=== PATIENT | female | born 1995 | race Two or more races ===

== ENCOUNTER 2019-09-20 01:22 | Inpatient (IN) | payer OTHER, MEDICAID ==
[2019-09-20] MEDS ORDERED: Penicillin G Potassium 5 MILLUNITS in Sodium Chloride 0.9% 50 ML IV ONE (02:16)
[2019-09-20] MEDS ORDERED: Sodium Chloride 0.9% 10 ML Syringe FLUSH PRN ×2 (02:22→07:11)
[2019-09-20] MEDS ORDERED: Penicillin G Potassium 2.5 MILLUNITS in Sodium Chloride 0.9% 50 ML IV SCH (06:30)
[2019-09-20] MEDS ORDERED: Naloxone 0.4 MG/ML SDV ONE (07:15)
[2019-09-20] MEDS ORDERED: Lidocaine 1% 50 ML MDV ONE (07:15)
[2019-09-20] MEDS ORDERED: Oxytocin 10 Units/1 ML SDV ONE (07:15)
--- NOTE | 2019-09-20 07:23 | PCM.LDHP ---
L&D History of Present Illness - General Date of Service: 09/20/19 (SROM, labor) Admit Problem/Dx: Patient Status Order with Admit Dx/Problem 09/20/19 02:25 Admission Status [Patient Status] [ADT] Routine 09/20/19 07:12 Patient Status [ADT] Routine Admission Diagnosis/Problem Admission Diagnosis/Problem Labor without complication Source of Information: Patient History Limitations: Reports: No Limitations - History of Present Illness Introduction:: 23 year old 39 weeks presented with SROM at 0130 without labor, GBS positive. Clear fluid. Has had adequate care. Came to the hospital promptly. Lab: ABO O pos GBS Pos HIV neg Rubella immune HGB 11.5 PLT 292 Timing/Duration: Reports: minutes: (3) Location, : Reports: Lower back Quality: Reports: Pressure Severity: Severe Improves with: Reports: Other (tub) Worsens with: Reports: Movement - Related Data Allergies/Adverse Reactions: Allergies Allergy/AdvReac Type Severity Reaction Status Date / Time atomoxetine Allergy Nausea Verified 09/20/19 02:30 Home Medications: Home Meds Acyclovir 400 mg PO TID 09/20/19 [History] Albuterol [Proventil Neb Soln] 09/20/19 [History] Albuterol/Ipratropium [DuoNeb 3.0-0.5 MG/3 ML] 3 ml NEB PRN 09/20/19 [History] #92/Iron/FA #8/Ps-Dha [Enbrace Hr Softgel] 1 tab PO DAILY 09/20/19 [ History] Past Medical History Respiratory History: Reports: Asthma [employer] History: Reports: , Spontaneous : 2 Para: 0 LMP (Approximate): (JOI 09/27/19) Psychiatric History: Reports: ADD, Depression - Past Surgical History Respiratory Surgical History: Reports: None Social & Family History - Family History Family Medical History: Noncontributory - Tobacco Use Smoking Status *Q: Never Smoker - Caffeine Use Caffeine Use: Reports: Coffee - Recreational Drug Use Recreational Drug Use: No H&P Review of Systems - Review of Systems: Review Of Systems: See Below General: Reports: No Symptoms HEENT: Reports: No Symptoms Pulmonary: Reports: No Symptoms Cardiovascular: Reports: No Symptoms Gastrointestinal: Reports: No Symptoms Genitourinary: Reports: No Symptoms Musculoskeletal: Reports: No Symptoms Skin: Reports: No Symptoms Psychiatric: Reports: No Symptoms Neurological: Reports: No Symptoms Hematologic/Lymphatic: Reports: No Symptoms Immunologic: Reports: No Symptoms L&D Exam - Exam Exam: See Below - Vital Signs Vital Signs: Last Vital Signs Temp 96.3 F 09/20/19 01:32 Pulse 72 09/20/19 01:32 Resp 18 09/20/19 01:32 BP 136/81 09/20/19 01:32 Pulse Ox 98 09/20/19 01:32 Weight: 217 lb - OB Specific Contraction Duration (sec): 50-60 Contraction Frequency (min): 2-3 Contraction Intensity: Moderate to Strong Movement: Active Heart Tones: Present Heart Tones per Min: 155 Heart Rate (FHR) Variability: Moderate (6-25 bmp) Presentation: Vertex - Eid Score Eid Score Cervix Position: Anterior Eid Score Consistency: Soft Eid Score Effacement: >80% Eid Score Dilation: > 5 cm Eid Score Infant's Station: +1, +2 Eid Score Total: 13 - Exam General: Alert, Oriented HEENT: PERRLA, Mucosa Moist & [place] Neck: Supple Lungs: Clear to Auscultation Cardiovascular: Regular Rate, Regular Rhythm GI/Abdominal Exam: Normal Bowel Sounds Rectal Exam: Normal Rectal Tone Genitourinary: Cervical dilitation Back Exam: Normal Inspection Extremities: Normal Inspection Skin: Warm, Dry Neurological: Cranial Nerves Intact Psychiatric: Alert, Normal Affect, Normal Mood - Patient Data Lab Results Last 24 hrs: Laboratory Results - last 24 hr 09/20/19 09/20/19 09/20/19 Range/Units 01:25 02:05 02:20 WBC (4.5-11.0) K/uL RBC (3.30-5.50) M/uL Hgb (12.0-15.0) g/dL Hct (36.0-48.0) % MCV (80-98) fL MCH (27-31) pg MCHC (32-36) % Plt Count (150-400) K/uL Urine Color Yellow (YELLOW) Urine Appearance Clear (CLEAR) Urine pH 6.0 (5.0-8.0) Ur Specific [place] 1.025 (1.008-1.030) Urine Protein Negative (NEGATIVE) mg/dL Urine Glucose (UA) Negative (NEGATIVE) mg/dL Urine Ketones Negative (NEGATIVE) mg/dL Urine Occult Blood Negative (NEGATIVE) Urine Nitrite Negative (NEGATIVE) Urine Bilirubin Negative (NEGATIVE) Urine Urobilinogen 0.2 (0.2-1.0) EU/dL Ur Leukocyte Esterase Negative (NEGATIVE) Urine RBC 0-5 (0-5) Urine WBC 0-5 (0-5) Ur Epithelial Cells Rare Amorphous Sediment Not seen Urine Bacteria Rare Urine Mucus Few Membrane Rupture Positive H (NEGATIVE) Urine Opiates Screen Negative (NEGATIVE) Ur Oxycodone Screen Negative (NEGATIVE) Urine Methadone Screen Negative (NEGATIVE) Ur Propoxyphene Screen Negative (NEGATIVE) Ur Barbiturates Screen Negative (NEGATIVE) Ur Tricyclics Screen Negative (NEGATIVE) Ur Phencyclidine Scrn Negative (NEGATIVE) Ur Amphetamine Screen Negative (NEGATIVE) U Methamphetamines Scrn Negative (NEGATIVE) Urine MDMA Screen Negative (NEGATIVE) U Benzodiazepines Scrn Negative (NEGATIVE) U Cocaine Metab Screen Negative (NEGATIVE) U Marijuana (THC) Screen Negative (NEGATIVE) 09/20/19 Range/Units 02:30 WBC 10.6 (4.5-11.0) K/uL RBC 3.56 (3.30-5.50) M/uL Hgb 11.5 L (12.0-15.0) g/dL Hct 34.9 L (36.0-48.0) % MCV 98 (80-98) fL MCH 32 H (27-31) pg MCHC 33 (32-36) % Plt Count 292 (150-400) K/uL Urine Color (YELLOW) Urine Appearance (CLEAR) Urine pH (5.0-8.0) Ur Specific [place] (1.008-1.030) Urine Protein (NEGATIVE) mg/dL Urine Glucose (UA) (NEGATIVE) mg/dL Urine Ketones (NEGATIVE) mg/dL Urine Occult Blood (NEGATIVE) Urine Nitrite (NEGATIVE) Urine Bilirubin (NEGATIVE) Urine Urobilinogen (0.2-1.0) EU/dL Ur Leukocyte Esterase (NEGATIVE) Urine RBC (0-5) Urine WBC (0-5) Ur Epithelial Cells Amorphous Sediment Urine Bacteria Urine Mucus Membrane Rupture (NEGATIVE) Urine Opiates Screen (NEGATIVE) Ur Oxycodone Screen (NEGATIVE) Urine Methadone Screen (NEGATIVE) Ur Propoxyphene Screen (NEGATIVE) Ur Barbiturates Screen (NEGATIVE) Ur Tricyclics Screen (NEGATIVE) Ur Phencyclidine Scrn (NEGATIVE) Ur Amphetamine Screen (NEGATIVE) U Methamphetamines Scrn (NEGATIVE) Urine MDMA Screen (NEGATIVE) U Benzodiazepines Scrn (NEGATIVE) U Cocaine Metab Screen (NEGATIVE) U Marijuana (THC) Screen (NEGATIVE) Result Diagrams: 09/20/19 02:30 - Problem List (1) SNOMED Code(s): 74306938 ICD Code: Z34.90 - ENCNTR FOR SUPRVSN OF NORMAL , UNSP, UNSP TRIMESTER Status: Acute Current Visit: Yes Qualifiers: Weeks of gestation: 39 weeks Qualified Code(s): Z3A.39 - 39 weeks gestation of (2) Spontaneous rupture of amniotic membranes SNOMED Code(s): 518378662 ICD Code: PRS6207 - Status: Acute Current Visit: Yes (3) Active labor at term SNOMED Code(s): 61826769 ICD Code: MFG3212 - Status: Acute Current Visit: Yes Problem List Initiated/Reviewed/Updated: Yes Orders Last 24hrs: Active Orders 24 hr Category Date Time Status Admission Status [Patient Status] [ADT] Routine ADT 09/20/19 02:25 Active Patient Status [ADT] Routine ADT 09/20/19 07:12 Active Antiembolic Devices [RC] .Routine Care 09/20/19 07:14 Active Communication Order [RC] ASDIRECTED Care 09/20/19 07:12 Active Communication Order [RC] Per Unit Routine Care 09/20/19 07:15 Active Communication Order [RC] Per Unit Routine Care 09/20/19 07:15 Active Communication Order [RC] Per Unit Routine Care 09/20/19 07:15 Active Heart Tones [RC] PER UNIT ROUTINE Care 09/20/19 07:12 Active Non Stress Test [RC] Click to Edit Care 09/20/19 07:12 Active Nitrous Oxide Delivery [RC] ASDIRECTED Care 09/20/19 07:15 Active Notify Provider Vital Signs [RC] PRN Care 09/20/19 07:11 Active Notify Provider [RC] PRN Care 09/20/19 07:12 Active OB Check [OM.PC] Click to Edit Care 09/20/19 01:25 Ordered Oxygen Therapy [RC] ASDIRECTED Care 09/20/19 07:15 Active Peripheral IV Care [RC] . DIRECTED Care 09/20/19 02:22 Active Pulse Oximetry [RC] ASDIRECTED Care 09/20/19 07:15 Active VTE/DVT Education [RC] Click to Edit Care 09/20/19 07:14 Active Verify Patient Consent Obtain [RC] ASDIRECTED Care 09/20/19 07:15 Active Vital Signs [RC] PER UNIT ROUTINE Care 09/20/19 07:12 Active Vital Signs [RC] PER UNIT ROUTINE Care 09/20/19 07:15 Active Penicillin G Potassium [Pfizerpen] 2.5 millunits Med 09/20/19 07:30 Active Sodium Chloride 0.9% [Normal Saline] 50 ml IV Q4H Sodium Chloride 0.9% [Saline Flush] Med 09/20/19 02:22 Active 10 ml FLUSH ASDIRECTED PRN Sodium Chloride 0.9% [Saline Flush] Med 09/20/19 07:11 Ordered 10 ml FLUSH ASDIRECTED PRN DVT/VTE Prophylaxis Reflex [OM.PC] Routine Oth 09/20/19 07:11 Ordered Peripheral IV Insertion Adult [OM.PC] Routine Oth 09/20/19 02:22 Ordered Saline Lock Insert [OM.PC] Routine Oth 09/20/19 07:12 Ordered Resuscitation Status Routine Resus Stat 09/20/19 07:11 Ordered Medication Orders Penicillin G Potassium 2.5 (millunits/ Sodium Chloride) 50 mls @ 100 mls/hr IV Q4H ROHINI Sodium Chloride (Saline Flush) 10 ml FLUSH ASDIRECTED PRN PRN Reason: Keep Vein Open Sodium Chloride (Saline Flush) 10 ml FLUSH ASDIRECTED PRN PRN Reason: Keep Vein Open Assessment/Plan Comment:: 09/20/19 active labor at term, SROM at home plan vaginal delivery this AM.
[2019-09-20] MEDS: Penicillin G Potassium 2.5 MILLUNITS in Sodium Chloride 0.9% 50 ML IV SCH ×2 (07:31→15:02)
--- NOTE | 2019-09-20 09:05 | PCM.DEL ---
L & D Note - General Info Date of Service: 09/20/19 (childbirth) Mother's Due Date: 08/27/19 - Delivery Note Labor: Spontaneous Delivery Outcome: Livebirth Infant Delivery Method: Spontaneous Vaginal Delivery-Single Delivery Mode: Spontaneous Presentation: Left Occiput Anterior (BRIONNA) Nuchal Cord: None Anesthesia Type: Nitrous Oxide Episiotomy Type: None Laceration: 1st Degree, Labial Placenta: Intact, Spontaneous Estimated Blood Loss: 100 Resuscitation Needed: No : Bulb Syringe, Stimulated, Warmed, [place] Used Provider: Mary Santoyo Score 1 min: 8 (one tone, one color) Score 5 min: 9 (one color) Second Stage Interventions: Reports: Encouragement Given, Pushing Effectively, Pushing, McRobert's Position Delivery Comments (Free Text/Narrative):: This 24 year old G2 now P1 who is 39 weeks gestation delivered via a viable female over an intact perineum at 0830 in BRIONNA position. SHe was placed on mother's abdomen where she was dried and stimulated. Apgars of 8-9. No nuchal cord and three vessel cord. She cried spontaneously. The placenta was expressed spontaneously intact. Active management of the third stage was used. ad delayed cord clamping as well. One small right labial tear was found and not bleeding so not repaired. No other lacerations were observed. EBL: 100cc Mother and baby to post in stable condition. First stage 9688-6116 Second stage 3704-1130, first push at 0755 third stage 7936-3952 - General Info Date of Service: 09/20/19 Admission Dx/Problem (Free Text): Patient Status Order with Admit Dx/Problem 09/20/19 02:25 Admission Status [Patient Status] [ADT] Routine 09/20/19 07:12 Patient Status [ADT] Routine Admission Diagnosis/Problem Admission Diagnosis/Problem Labor without complication Functional Status: Reports: Pain Controlled - Review of Systems General: Reports: No Symptoms HEENT: Reports: No Symptoms Pulmonary: Reports: No Symptoms Cardiovascular: Reports: No Symptoms Gastrointestinal: Reports: No Symptoms Genitourinary: Reports: No Symptoms Musculoskeletal: Reports: No Symptoms Skin: Reports: No Symptoms Neurological: Reports: No Symptoms Psychiatric: Reports: No Symptoms - Patient Data Vitals - Most Recent: Last Vital Signs Temp 98.1 F 09/20/19 07:38 Pulse 84 09/20/19 07:38 Resp 18 09/20/19 07:38 BP 152/82 H 09/20/19 07:38 Pulse Ox 99 09/20/19 07:38 Weight - Most Recent: 217 lb Lab Results Last 24 Hours: Laboratory Results - last 24 hr 09/20/19 09/20/19 09/20/19 Range/Units 01:25 02:05 02:20 WBC (4.5-11.0) K/uL RBC (3.30-5.50) M/uL Hgb (12.0-15.0) g/dL Hct (36.0-48.0) % MCV (80-98) fL MCH (27-31) pg MCHC (32-36) % Plt Count (150-400) K/uL Urine Color Yellow (YELLOW) Urine Appearance Clear (CLEAR) Urine pH 6.0 (5.0-8.0) Ur Specific [place] 1.025 (1.008-1.030) Urine Protein Negative (NEGATIVE) mg/dL Urine Glucose (UA) Negative (NEGATIVE) mg/dL Urine Ketones Negative (NEGATIVE) mg/dL Urine Occult Blood Negative (NEGATIVE) Urine Nitrite Negative (NEGATIVE) Urine Bilirubin Negative (NEGATIVE) Urine Urobilinogen 0.2 (0.2-1.0) EU/dL Ur Leukocyte Esterase Negative (NEGATIVE) Urine RBC 0-5 (0-5) Urine WBC 0-5 (0-5) Ur Epithelial Cells Rare Amorphous Sediment Not seen Urine Bacteria Rare Urine Mucus Few Membrane Rupture Positive H (NEGATIVE) Urine Opiates Screen Negative (NEGATIVE) Ur Oxycodone Screen Negative (NEGATIVE) Urine Methadone Screen Negative (NEGATIVE) Ur Propoxyphene Screen Negative (NEGATIVE) Ur Barbiturates Screen Negative (NEGATIVE) Ur Tricyclics Screen Negative (NEGATIVE) Ur Phencyclidine Scrn Negative (NEGATIVE) Ur Amphetamine Screen Negative (NEGATIVE) U Methamphetamines Scrn Negative (NEGATIVE) Urine MDMA Screen Negative (NEGATIVE) U Benzodiazepines Scrn Negative (NEGATIVE) U Cocaine Metab Screen Negative (NEGATIVE) U Marijuana (THC) Screen Negative (NEGATIVE) 09/20/19 Range/Units 02:30 WBC 10.6 (4.5-11.0) K/uL RBC 3.56 (3.30-5.50) M/uL Hgb 11.5 L (12.0-15.0) g/dL Hct 34.9 L (36.0-48.0) % MCV 98 (80-98) fL MCH 32 H (27-31) pg MCHC 33 (32-36) % Plt Count 292 (150-400) K/uL Urine Color (YELLOW) Urine Appearance (CLEAR) Urine pH (5.0-8.0) Ur Specific [place] (1.008-1.030) Urine Protein (NEGATIVE) mg/dL Urine Glucose (UA) (NEGATIVE) mg/dL Urine Ketones (NEGATIVE) mg/dL Urine Occult Blood (NEGATIVE) Urine Nitrite (NEGATIVE) Urine Bilirubin (NEGATIVE) Urine Urobilinogen (0.2-1.0) EU/dL Ur Leukocyte Esterase (NEGATIVE) Urine RBC (0-5) Urine WBC (0-5) Ur Epithelial Cells Amorphous Sediment Urine Bacteria Urine Mucus Membrane Rupture (NEGATIVE) Urine Opiates Screen (NEGATIVE) Ur Oxycodone Screen (NEGATIVE) Urine Methadone Screen (NEGATIVE) Ur Propoxyphene Screen (NEGATIVE) Ur Barbiturates Screen (NEGATIVE) Ur Tricyclics Screen (NEGATIVE) Ur Phencyclidine Scrn (NEGATIVE) Ur Amphetamine Screen (NEGATIVE) U Methamphetamines Scrn (NEGATIVE) Urine MDMA Screen (NEGATIVE) U Benzodiazepines Scrn (NEGATIVE) U Cocaine Metab Screen (NEGATIVE) U Marijuana (THC) Screen (NEGATIVE) Med Orders - Current: Current Medications Penicillin G Potassium 2.5 (millunits/ Sodium Chloride) 50 mls @ 100 mls/hr IV Q4H [facility] Last Admin: 09/20/19 07:31 Dose: 100 mls/hr Sodium Chloride (Saline Flush) 10 ml FLUSH ASDIRECTED PRN PRN Reason: Keep Vein Open Discontinued Medications Penicillin G Potassium 5 (millunits/ Sodium Chloride) 50 mls @ 100 mls/hr IV ONETIME ONE Stop: 09/20/19 02:45 Last Admin: 09/20/19 03:21 Dose: 100 mls/hr Penicillin G Potassium 2.5 (millunits/ Sodium Chloride) 50 mls @ 100 mls/hr IV Q4H [facility] Oxytocin/Sodium Chloride (Pitocin In Ns 20 Units/1,000 Ml) Confirm Administered Dose 20 unit in 1,000 mls @ as directed .ROUTE .[facility] ONE Stop: 09/20/19 07:16 Lidocaine HCl (Xylocaine 1%) Confirm Administered Dose 100 ml .ROUTE .[facility] ONE Stop: 09/20/19 07:16 Naloxone HCl (Narcan) Confirm Administered Dose 0.4 mg .ROUTE .[facility] ONE Stop: 09/20/19 07:16 Oxytocin (Pitocin) Confirm Administered Dose 10 unit .ROUTE .[facility] ONE Stop: 09/20/19 07:16 - Exam General: Alert, Oriented HEENT: Pupils Reactive, Mucous Membr. Moist/[place] Neck: Supple Lungs: Normal Respiratory Effort Cardiovascular: Regular Rate GI/Abdominal Exam: Normal Bowel Sounds (Female) Exam: Cervical Dilatation, Enlarged Uterus, Vaginal Bleeding Back Exam: Full Range of Motion Extremities: Non-Tender, No Pedal Edema, Normal Capillary Refill Skin: Warm, Dry, Intact Neurological: No New Focal Deficit Psy/Mental Status: Alert, Normal Affect, Normal Mood - Problem List & Annotations (1) SNOMED Code(s): 59234653 Code(s): Z34.90 - ENCNTR FOR SUPRVSN OF NORMAL , UNSP, UNSP TRIMESTER Status: Acute Current Visit: Yes Qualifiers: Weeks of gestation: 39 weeks Qualified Code(s): Z3A.39 - 39 weeks gestation of (2) Spontaneous rupture of amniotic membranes SNOMED Code(s): 549524410 Code(s): DXJ9575 - Status: Acute Current Visit: Yes (3) Active labor at term SNOMED Code(s): 97947789 Code(s): LGG4070 - Status: Acute Current Visit: Yes (4) Vaginal delivery SNOMED Code(s): 854208860 Code(s): O80 - ENCOUNTER FOR FULL-TERM UNCOMPLICATED DELIVERY Status: Acute Current Visit: Yes - Problem List Review Problem List Initiated/Reviewed/Updated: Yes - My Orders Last 24 Hours: My Active Orders 09/20/19 01:25 OB Check [OM.PC] Click To Edit 09/20/19 02:22 Peripheral IV Care [RC] . DIRECTED Sodium Chloride 0.9% [Saline Flush] 10 ml FLUSH ASDIRECTED PRN Peripheral IV Insertion Adult [OM.PC] Routine 09/20/19 02:25 Admission Status [Patient Status] [ADT] Routine 09/20/19 07:11 Notify Provider Vital Signs [RC] PRN DVT/VTE Prophylaxis Reflex [OM.PC] Routine Resuscitation Status Routine 09/20/19 07:12 Patient Status [ADT] Routine Communication Order [RC] ASDIRECTED Heart Tones [RC] PER UNIT ROUTINE Non Stress Test [RC] Click to Edit Notify Provider [RC] PRN Vital Signs [RC] PER UNIT ROUTINE Saline Lock Insert [OM.PC] Routine 09/20/19 07:14 Antiembolic Devices [RC] .Routine VTE/DVT Education [RC] Click to Edit 09/20/19 07:15 Communication Order [RC] Per Unit Routine Communication Order [RC] Per Unit Routine Communication Order [RC] Per Unit Routine Nitrous Oxide Delivery [RC] ASDIRECTED Oxygen Therapy [RC] ASDIRECTED Pulse Oximetry [RC] ASDIRECTED Verify Patient Consent Obtain [RC] ASDIRECTED Vital Signs [RC] PER UNIT ROUTINE 09/20/19 07:30 Penicillin G Potassium [Pfizerpen] 2.5 millunits Sodium Chloride 0.9% [Normal Saline] 50 ml IV Q4H - Assessment Assessment:: 09/20/19 24 year old 39 weeks, uncomplicated vaginal delivery female infant - Plan Plan:: 09/20/19 active labor at term, SROM at home plan vaginal delivery this AM. 09/20/19 routine cares hgb in am education 48 hour stay, GBS positive, treated.
[2019-09-20] MEDS ORDERED: Lanolin 100% Cream 40 GM Tube TOP ONE (09:09)
[2019-09-20] MEDS ORDERED: Acetaminophen 325 MG Tab, 50 Tab Bulk Bottle PO PRN (09:09)
[2019-09-20] MEDS ORDERED: Witch Hazel Medicated Pads 100/Jar TOP PRN (09:14)
[2019-09-20] MEDS: Ibuprofen 200 MG Tab, 24 Tab Bulk Bottle PO PRN (09:31)
--- NOTE | 2019-09-21 10:48 | PCM.PNPP ---
- General Info Date of Service: 09/21/19 Admission Dx/Problem (Free Text): Patient Status Order with Admit Dx/Problem 09/20/19 02:25 Admission Status [Patient Status] [ADT] Routine 09/20/19 07:12 Patient Status [ADT] Routine Admission Diagnosis/Problem Admission Diagnosis/Problem Labor without complication Functional Status: Reports: Pain Controlled - Review of Systems General: Reports: No Symptoms HEENT: Reports: No Symptoms Pulmonary: Reports: No Symptoms Cardiovascular: Reports: No Symptoms Gastrointestinal: Reports: No Symptoms Genitourinary: Reports: No Symptoms Musculoskeletal: Reports: No Symptoms Skin: Reports: No Symptoms Neurological: Reports: No Symptoms Psychiatric: Reports: No Symptoms - Patient Data Vital Signs - Most Recent: Last Vital Signs Temp 97.9 F 09/21/19 07:00 Pulse 70 09/21/19 07:00 Resp 16 09/21/19 07:00 BP 120/58 L 09/21/19 07:00 Pulse Ox 100 09/21/19 07:00 Weight - Most Recent: 217 lb 0.016 oz I&O - Last 24 Hours: Intake & Output 09/20/19 09/21/19 09/21/19 22:59 06:59 14:59 Intake Total 1000 Balance 1000 Lab Results - Last 24 Hours: Laboratory Results - last 24 hr 09/21/19 Range/Units 04:15 WBC 13.3 H (4.5-11.0) K/uL RBC 3.67 (3.30-5.50) M/uL Hgb 11.5 L (12.0-15.0) g/dL Hct 36.0 (36.0-48.0) % MCV 98 (80-98) fL MCH 31 (27-31) pg MCHC 32 (32-36) % Plt Count 318 (150-400) K/uL Neut % (Auto) 71 H (36-66) % Lymph % (Auto) 20 L (24-44) % [place] % (Auto) 8 H (2-6) % Eos % (Auto) 1 L (2-4) % Baso % (Auto) 0 (0-1) % Med Orders - Current: Current Medications Acetaminophen (Tylenol Bulk Bottle) 325 - 650 mg PO Q4H PRN PRN Reason: Pain Last Admin: 09/20/19 09:31 Dose: 1 bottle Ibuprofen (Motrin Bulk Bottle) 600 mg PO Q6H PRN PRN Reason: Pain Last Admin: 09/20/19 09:31 Dose: 1 bottle Sodium Chloride (Saline Flush) 10 ml FLUSH ASDIRECTED PRN PRN Reason: Keep Vein Open Witch Neela (Tucks) 1 pad TOP ASDIRECTED PRN PRN Reason: Perineal Comfort Measure Last Admin: 09/20/19 09:30 Dose: 1 pad Discontinued Medications Emollient Ointment (Lansinoh Hpa) 0 gm TOP ASDIRECTED ONE Stop: 09/20/19 09:10 Last Admin: 09/20/19 09:31 Dose: 1 applic Penicillin G Potassium 5 (millunits/ Sodium Chloride) 50 mls @ 100 mls/hr IV ONETIME ONE Stop: 09/20/19 02:45 Last Admin: 09/20/19 03:21 Dose: 100 mls/hr Penicillin G Potassium 2.5 (millunits/ Sodium Chloride) 50 mls @ 100 mls/hr IV Q4H ROHINI Penicillin G Potassium 2.5 (millunits/ Sodium Chloride) 50 mls @ 100 mls/hr IV Q4H ROHINI Last Admin: 09/20/19 15:02 Dose: Not Given Oxytocin/Sodium Chloride (Pitocin In Ns 20 Units/1,000 Ml) Confirm Administered Dose 20 unit in 1,000 mls @ as directed .ROUTE .[facility] ONE Stop: 09/20/19 07:16 Last Admin: 09/20/19 09:17 Dose: Not Given Oxytocin/Sodium Chloride (Pitocin In Ns 20 Units/1,000 Ml) 20 unit in 1,000 mls @ 999 mls/hr IV ONETIME ONE; Protocol Stop: 09/20/19 10:13 Last Admin: 09/20/19 08:30 Dose: 999 mls/hr, 999 mls/hr Lidocaine HCl (Xylocaine 1%) Confirm Administered Dose 100 ml .ROUTE .[facility] ONE Stop: 09/20/19 07:16 Last Admin: 09/20/19 09:17 Dose: Not Given Naloxone HCl (Narcan) Confirm Administered Dose 0.4 mg .ROUTE .[facility] ONE Stop: 09/20/19 07:16 Last Admin: 09/20/19 09:17 Dose: Not Given Oxytocin (Pitocin) Confirm Administered Dose 10 [facility] Stop: 09/20/19 07:16 Last Admin: 09/20/19 09:17 Dose: Not Given - Interaction Infant Disposition, : [place] in Room with Family Interaction: Holding Feeding: Attempted ; Nursed Fair/Poor, Difficulty with Latch -on Support Person: Significant Other - Recovery Exam Fundal Tone: Firm Fundal Level: 2 Fingerbreadths Above Umbilicus Fundal Placement: Midline Lochia Amount: Moderate Lochia Color: Rubra/Red Perineum Description: Intact, Minimal Bruising/Swelling Other Perinuem Description: labial first degree Episiotomy/Laceration: Approximated Bladder Status: Voiding Urinary Elimination: Voided - Exam General: Alert, Oriented HEENT: Pupils Equal, Pupils Reactive, Mucous Membr. Moist/[place] Neck: Supple Lungs: Clear to Auscultation, Normal Respiratory Effort Cardiovascular: Regular Rate, Regular Rhythm GI/Abdominal Exam: Soft, Non-Tender Extremities: Normal Inspection, No Pedal Edema, Normal Capillary Refill Skin: Warm, Dry, Intact Wound/Incisions: Healing Well Neurological: No New Focal Deficit Psy/Mental Status: Alert, Normal Affect, Normal Mood - Problem List & Annotations (1) SNOMED Code(s): 27754176 Code(s): Z34.90 - ENCNTR FOR SUPRVSN OF NORMAL , UNSP, UNSP TRIMESTER Status: Acute Current Visit: Yes Qualifiers: Weeks of gestation: 39 weeks Qualified Code(s): Z3A.39 - 39 weeks gestation of (2) Spontaneous rupture of amniotic membranes SNOMED Code(s): 994304442 Code(s): CVO8804 - Status: Acute Current Visit: Yes (3) Active labor at term SNOMED Code(s): 75719850 Code(s): ATN1111 - Status: Acute Current Visit: Yes (4) Vaginal delivery SNOMED Code(s): 667088988 Code(s): O80 - ENCOUNTER FOR FULL-TERM UNCOMPLICATED DELIVERY Status: Acute Current Visit: Yes - Problem List Review Problem List Initiated/Reviewed/Updated: Yes - My Orders Last 24 Hours: My Active Orders 09/20/19 Lunch Regular Diet [DIET] - Assessment Assessment:: 09/20/19 24 year old 39 weeks, uncomplicated vaginal delivery female 09/21/19 HGB 11.5 feels great, up and about voiding without problem mild cramping and light flow - Plan Plan:: 09/20/19 active labor at term, SROM at home plan vaginal delivery this AM. 09/20/19 routine cares hgb in am education 48 hour stay, GBS positive, treated. 09/21/19 Needs more education on home tomorrow
--- NOTE | 2019-09-22 09:33 | PCM.PNPP ---
- General Info Date of Service: 09/22/19 (PPD 2) Admission Dx/Problem (Free Text): Patient Status Order with Admit Dx/Problem 09/20/19 02:25 Admission Status [Patient Status] [ADT] Routine 09/20/19 07:12 Patient Status [ADT] Routine Admission Diagnosis/Problem Admission Diagnosis/Problem Labor without complication Functional Status: Reports: Pain Controlled - Review of Systems General: Reports: No Symptoms HEENT: Reports: No Symptoms Pulmonary: Reports: No Symptoms Cardiovascular: Reports: No Symptoms Gastrointestinal: Reports: No Symptoms Genitourinary: Reports: No Symptoms Musculoskeletal: Reports: No Symptoms Skin: Reports: No Symptoms Neurological: Reports: No Symptoms Psychiatric: Reports: No Symptoms - General Info Date of Service: 09/22/19 - Patient Data Vital Signs - Most Recent: Last Vital Signs Temp 96.3 F 09/22/19 07:41 Pulse 62 09/22/19 07:41 Resp 16 09/22/19 07:41 BP 124/63 09/22/19 07:41 Pulse Ox 99 09/22/19 07:41 Weight - Most Recent: 217 lb 0.016 oz I&O - Last 24 Hours: Intake & Output 09/21/19 09/22/19 09/22/19 22:59 06:59 14:59 Intake Total 240 Balance 240 Med Orders - Current: Current Medications Acetaminophen (Tylenol Bulk Bottle) 325 - 650 mg PO Q4H PRN PRN Reason: Pain Last Admin: 09/20/19 09:31 Dose: 1 bottle Ibuprofen (Motrin Bulk Bottle) 600 mg PO Q6H PRN PRN Reason: Pain Last Admin: 09/20/19 09:31 Dose: 1 bottle Sodium Chloride (Saline Flush) 10 ml FLUSH ASDIRECTED PRN PRN Reason: Keep Vein Open Witch Neela (Tucks) 1 pad TOP ASDIRECTED PRN PRN Reason: Perineal Comfort Measure Last Admin: 09/20/19 09:30 Dose: 1 pad Discontinued Medications Emollient Ointment (Lansinoh Hpa) 0 gm TOP ASDIRECTED ONE Stop: 09/20/19 09:10 Last Admin: 09/20/19 09:31 Dose: 1 applic Penicillin G Potassium 5 (millunits/ Sodium Chloride) 50 mls @ 100 mls/hr IV ONETIME ONE Stop: 09/20/19 02:45 Last Admin: 09/20/19 03:21 Dose: 100 mls/hr Penicillin G Potassium 2.5 (millunits/ Sodium Chloride) 50 mls @ 100 mls/hr IV Q4H ROHINI Penicillin G Potassium 2.5 (millunits/ Sodium Chloride) 50 mls @ 100 mls/hr IV Q4H ROHINI Last Admin: 09/20/19 15:02 Dose: Not Given Oxytocin/Sodium Chloride (Pitocin In Ns 20 Units/1,000 Ml) Confirm Administered Dose 20 unit in 1,000 mls @ as directed .ROUTE .STK-MED ONE Stop: 09/20/19 07:16 Last Admin: 09/20/19 09:17 Dose: Not Given Oxytocin/Sodium Chloride (Pitocin In Ns 20 Units/1,000 Ml) 20 unit in 1,000 mls @ 999 mls/hr IV ONETIME ONE; Protocol Stop: 09/20/19 10:13 Last Admin: 09/20/19 08:30 Dose: 999 mls/hr, 999 mls/hr Lidocaine HCl (Xylocaine 1%) Confirm Administered Dose 100 ml .ROUTE .STK-MED ONE Stop: 09/20/19 07:16 Last Admin: 09/20/19 09:17 Dose: Not Given Naloxone HCl (Narcan) Confirm Administered Dose 0.4 mg .ROUTE .STK-MED ONE Stop: 09/20/19 07:16 Last Admin: 09/20/19 09:17 Dose: Not Given Oxytocin (Pitocin) Confirm Administered Dose 10 unit .ROUTE .STK-MED ONE Stop: 09/20/19 07:16 Last Admin: 09/20/19 09:17 Dose: Not Given - Interaction Disposition, : in Room with Family Interaction: Holding Feeding: Breastfed Infant; Nursed Well, Continues to Breastfeed, Encouraged to Breastfeed Support Person: - Recovery Exam Fundal Tone: Firm Fundal Level: 2 Fingerbreadths Below Umbilicus Fundal Placement: Midline Lochia Amount: Small Lochia Color: Serosa/Braxton Perineum Description: Intact, Minimal Bruising/Swelling Other Perinuem Description: labial first degree Episiotomy/Laceration: Approximated Bladder Status: Voiding Urinary Elimination: Voided - Exam General: Alert, Oriented HEENT: Pupils Reactive, Mucous Membr. Moist/Braxton Neck: Supple Lungs: Normal Respiratory Effort Cardiovascular: Regular Rate GI/Abdominal Exam: Normal Bowel Sounds, Soft Extremities: Normal Inspection, No Pedal Edema Skin: Warm, Dry Wound/Incisions: Healing Well Neurological: No New Focal Deficit Psy/Mental Status: Alert, Normal Affect, Normal Mood - Problem List & Annotations (1) SNOMED Code(s): 02748812 Code(s): Z34.90 - ENCNTR FOR SUPRVSN OF NORMAL , UNSP, UNSP TRIMESTER Status: Acute Current Visit: Yes Qualifiers: Weeks of gestation: 39 weeks Qualified Code(s): Z3A.39 - 39 weeks gestation of (2) Spontaneous rupture of amniotic membranes SNOMED Code(s): 993221123 Code(s): WXF5421 - Status: Acute Current Visit: Yes (3) Active labor at term SNOMED Code(s): 84862616 Code(s): UOA3021 - Status: Acute Current Visit: Yes (4) Vaginal delivery SNOMED Code(s): 040560901 Code(s): O80 - ENCOUNTER FOR FULL-TERM UNCOMPLICATED DELIVERY Status: Acute Current Visit: Yes - Problem List Review Problem List Initiated/Reviewed/Updated: Yes - Assessment Assessment:: 09/20/19 24 year old 39 weeks, uncomplicated vaginal delivery female infant 09/21/19 HGB 11.5 feels great, up and about voiding without problem mild cramping and light flow 09/22/19 PPD 2 mood happy feeling well no breast tenderness, milk not in yet mild cramping, voiding fine light flow - Plan Plan:: 09/20/19 active labor at term, SROM at home plan vaginal delivery this AM. 09/20/19 routine cares hgb in am education 48 hour stay, GBS positive, treated. 09/21/19 Needs more education on home tomorrow 09/22/19 Home today See me in 6 weeks education on self cares
[2019-09-22] MEDS ORDERED: Docusate Sodium 100 MG Cap PO PRN (09:43)
[2019-09-22] MEDS: Ibuprofen 200 MG Tab, 24 Tab Bulk Bottle PO PRN (10:25)
== END 2019-09-22 11:10 | disposition home or self-care (01) | DRG 807 ==
LOC: JP.OBCHECK 01:22 → JP.OB 02:25 → OBSVTOIN 08:30 → JP.MS 11:27
PROVIDERS: ADMIT Nurse Practitioner Family; ATTEND Nurse Practitioner Family
PROC: 10E0XZZ Delivery of Products of Conception, External Approach (ICD-10-PCS; principal; 2019-09-20)
PROC: 10907ZC Drainage of Amniotic Fluid, Therapeutic from Products of Conception, Via Natural or Artificial Opening (ICD-10-PCS; 2019-09-20)
PROC: 0HQ9XZZ Repair Perineum Skin, External Approach (ICD-10-PCS; 2019-09-20)
DX: O99.824 Streptococcus B carrier state complicating childbirth (principal); Z37.0 Single live birth; Z3A.39 39 weeks gestation of pregnancy; Z88.8 Allergy status to other drugs, medicaments and biological substances; Z79.899 Other long term (current) drug therapy; O70.0 First degree perineal laceration during delivery; J45.909 Unspecified asthma, uncomplicated; O99.513 Diseases of the respiratory system complicating pregnancy, third trimester
CPT/HCPCS: 36415; 59409; 80305-QW; 81001; 84112; 85025; 85027; 99211; A9270-GY; J2540; J2590; J7050